=== PATIENT | female | born 1955 | race Caucasian/White ===

== ENCOUNTER → 2024-01-14 | Outpatient (REF) | payer MEDICARE | LOC: MAMMO 12:40 | PROVIDERS: ATTEND Internal Medicine | DX: N63.20 Unspecified lump in the left breast, unspecified quadrant (principal); N64.4 Mastodynia | CPT/HCPCS: 77066 ==

== ENCOUNTER → 2024-01-22 | Outpatient (REF) | payer MEDICARE ==
[~2024-01-22] MED LIST: LIDOCAINE HCL 1% LOCAL INJ 20 ML VIAL ONE
== END ==
LOC: US 10:47
PROVIDERS: ATTEND Internal Medicine
DX: N63.20 Unspecified lump in the left breast, unspecified quadrant (principal)
CPT/HCPCS: 19083; 77065; 88305; 88342; A4648; J2001